=== PATIENT | male | born 1960 | race Hispanic/Latino ===

== ENCOUNTER 2020-02-22 11:54 | Observation (INO) | payer OTHER ==
[~2020-02-22] VITALS: Ht 167.6 cm; Wt 86.7 kg
[2020-02-22 11:45] VITALS: BP 136/65
[2020-02-22 12:25] LABS: BASOPHILS % (AUTO) 0.5 % (0.0-5.0); EOSINOPHILS % (AUTO) 2.7 % (0.0-8.0); LYMPHOCYTES % (AUTO) 17.6 % (21.0-51.0); MEAN CORPUSCULAR HEMOGLOBIN 27.3 pg (27.0-33.0); MEAN CORPUSCULAR HGB CONC 32.7 g/dL (32.0-36.0); MEAN CORPUSCULAR VOLUME 83.5 fL (79-99); MONOCYTES % (AUTO) 6.8 % (3.0-13.0); NEUTROPHILS % (AUTO) 71.9 % (40.0-77.0); PLATELET COUNT (AUTO) 373 K/uL (130-400); RED BLOOD CELL COUNT(AUTO) 3.95 MIL/uL (4.50-6.20); RED CELL DISTRIBUTION WIDTH 12.7 % (11.0-15.5); WHITE BLOOD COUNT (AUTO) 9.1 K/uL (4.8-10.8)
[2020-02-22 12:37] LABS: CARBON DIOXIDE 24 mmol/L (21-32); CHLORIDE 102 mmol/L (101-111); CREATININE 0.9 mg/dL (0.5-1.5); GLOMERULAR FILTR. RATE CALC 91 mL/min (>60); GLUCOSE,RANDOM 331 mg/dL (70-105); POTASSIUM 4.3 mmol/L (3.5-5.1); SODIUM SERUM 139 mmol/L (136-145); UREA NITROGEN, BLOOD 15 mg/dL (7-18)
[2020-02-22 12:48] LABS: ALANINE AMINOTRANSFERASE 23 U/L (12-78); ALBUMIN 3.7 g/dL (3.5-5.0); ASPARTATE AMINOTRANSFERASE 16 U/L (10-37); BILIRUBIN,TOTAL 0.4 mg/dL (0.2-1.0); CREATINE KINASE, TOTAL 140 U/L (21-232); MYOGLOBIN 46 ng/mL (10-92); TOTAL PROTEIN, SERUM 7.8 g/dL (6.0-8.3); TROPONIN I < 0.04 ng/mL (0.00-0.06)
[2020-02-22 13:45] VITALS: BP 136/65
[2020-02-22] MEDS: INSULIN LISPRO 100 UNIT/ML 3ML SQ SCH ×3 (14:41→20:29)
[2020-02-22 15:39] LABS: CHOLESTEROL 228 mg/dL (<200); HDL CHOLESTEROL 141 mg/dL (29-71); LDL DIRECT 114 mg/dL (0-99); TRIGLYCERIDES 398 mg/dL (30-200)
[2020-02-22] MEDS ORDERED: ALPRAZOLAM 0.25 MG TABLET PO PRN (15:45)
[2020-02-22 16:00] VITALS: BP 123/58
[2020-02-22] MEDS: ASPIRIN 325MG EC TAB 325 MG TABLET.DR PO SCH (16:41)
[2020-02-22] MEDS: ENOXAPARIN SODIUM 40 MG/0.4 ML SYRINGE SQ SCH (16:42)
[2020-02-22 19:03] LABS: CREATINE KINASE, TOTAL 114 U/L (21-232); MYOGLOBIN 51 ng/mL (10-92); TROPONIN I < 0.04 ng/mL (0.00-0.06)
[2020-02-22 20:04] VITALS: BP 125/70
[2020-02-22] MEDS: FAMOTIDINE 20MG TAB 20 MG TAB PO SCH (20:26)
[2020-02-22] MEDS: METOPROLOL TARTRATE 25 MG TAB PO SCH (20:27)
[2020-02-22] MEDS ORDERED: ALPRAZOLAM 0.25 MG TABLET PO SCH (21:00)
[2020-02-22 23:54] VITALS: BP 116/62
[2020-02-23] VITALS (14 sets, daily range): BP systolic 115–181; BP diastolic 70–103
[2020-02-23 01:09] LABS: CREATINE KINASE, TOTAL 90 U/L (21-232); MYOGLOBIN 36 ng/mL (10-92); TROPONIN I < 0.04 ng/mL (0.00-0.06)
[2020-02-23 06:36] LABS: MEAN CORPUSCULAR HEMOGLOBIN 27.5 pg (27.0-33.0); MEAN CORPUSCULAR HGB CONC 32.7 g/dL (32.0-36.0); MEAN CORPUSCULAR VOLUME 84.3 fL (79-99); RED BLOOD CELL COUNT(AUTO) 3.56 MIL/uL (4.50-6.20); RED CELL DISTRIBUTION WIDTH 12.5 % (11.0-15.5); WHITE BLOOD COUNT (AUTO) 7.3 K/uL (4.8-10.8)
[2020-02-23 07:06] LABS: CREATININE 0.8 mg/dL (0.5-1.5); POTASSIUM 4.1 mmol/L (3.5-5.1)
[2020-02-23 07:10] LABS: INR 0.89 (0.85-1.15); PARTIAL THROMBOPLASTIN TIME 26.2 SEC (26.3-35.5); PROTHROMBIN TIME 9.7 SEC (9.6-11.6)
[2020-02-23] MEDS ORDERED: EZETIMIBE 10 MG TAB PO SCH (07:30)
[2020-02-23] MEDS ORDERED: METHYLPREDNISOLONE SOD SUCC 125MG/2ML VIAL IVP SCH ×2 (07:30→07:45)
[2020-02-23] MEDS ORDERED: FENOFIBRATE NANOCRYSTALLIZED 145 MG TAB PO SCH (07:30)
[2020-02-23] MEDS ORDERED: DiphenhydrAMINE HCL 50 MG/ML VIAL IV SCH ×2 (07:30→08:00)
[2020-02-23] MEDS ORDERED: PHARMACY COMMUNICATION MISC SCH (07:45)
[2020-02-23] MEDS: METOPROLOL TARTRATE 25 MG TAB PO SCH ×2 (08:24→20:27)
[2020-02-23] MEDS: FAMOTIDINE 20MG TAB 20 MG TAB PO SCH ×2 (08:24→20:27)
[2020-02-23] MEDS: INSULIN LISPRO 100 UNIT/ML 3ML SQ SCH ×4 (08:29→23:36)
[2020-02-23] MEDS: ENOXAPARIN SODIUM 40 MG/0.4 ML SYRINGE SQ SCH (09:00)
[2020-02-23] MEDS: ASPIRIN 325MG EC TAB 325 MG TABLET.DR PO SCH (09:00)
[2020-02-23] MEDS ORDERED: SODIUM CHLORIDE 0.9% 1000ML 1,000 ML IV SCH (10:15)
[2020-02-23] MEDS ORDERED: SODIUM BICARB 50MEQ 50ML VIAL 50 ML ONE (15:17)
[2020-02-23] MEDS ORDERED: HEPARIN SODIUM 1000UNIT/ML 10ML VIAL ONE (15:17)
[2020-02-23] MEDS ORDERED: MEPERIDINE-PF 25 MG/ML SYG ONE ×2 (15:17→16:30)
[2020-02-23] MEDS ORDERED: IOHEXOL-350 50ML VIAL IV ONE (15:17)
[2020-02-23] MEDS ORDERED: IOHEXOL 350 MG/ML 100ML INFUS..BTL IV ONE (15:17)
[2020-02-23] MEDS ORDERED: NITROGLYCERIN 2 MG/VIAL VIAL IV ONE (15:17)
[2020-02-23] MEDS ORDERED: LIDOCAINE HCL 2% 20ML ONE (15:18)
[2020-02-23] MEDS ORDERED: MIDAZOLAM HCL 1 MG/ML 2ML VIAL ONE ×2 (15:18→16:30)
[2020-02-23] MEDS ORDERED: CLOPIDOGREL BISULFATE 300 MG TAB ONE (16:56)
[2020-02-23] MEDS ORDERED: ASPIRIN 325MG EC TAB 325 MG TABLET.DR PO ONE (16:56)
[2020-02-23] MEDS ORDERED: NITROGLYCERIN 50 MG/D5% WATER 1 BOT IV PRN (17:15)
[2020-02-23] MEDS ORDERED: TEMAZEPAM 30 MG CAP PO PRN (17:15)
[2020-02-23] MEDS ORDERED: ONDANSETRON HCL 4 MG/2 ML VIAL IVP PRN (17:15)
[2020-02-23] MEDS: SODIUM CHLORIDE 0.9% 1000ML 1,000 ML IV SCH (18:14)
[2020-02-23] MEDS ORDERED: LORA10TA7 PO (21:50)
[2020-02-23] MEDS ORDERED: ICOS1CAP PO (21:50)
[2020-02-23] MEDS ORDERED: CELE-84 PO (21:50)
[2020-02-23] MEDS ORDERED: ESCI10TA PO (21:54)
[2020-02-23] MEDS ORDERED: INSU100I24 SQ (21:54)
[2020-02-23] MEDS ORDERED: IBUP-2070 PO (21:54)
[2020-02-23] MEDS ORDERED: SITA1TAB6 PO (21:54)
[2020-02-23] MEDS ORDERED: AMLO-258 PO (21:56)
[2020-02-23] MEDS ORDERED: EMPA25TA PO (21:56)
[2020-02-23] MEDS ORDERED: LOSA100T58 PO (21:56)
[2020-02-23] MEDS ORDERED: DONE5TAB33 PO (21:59)
[2020-02-23] MEDS ORDERED: INSU200I SQ (21:59)
[2020-02-24] VITALS: BP 132/69
[2020-02-24] MEDS: SODIUM CHLORIDE 0.9% 1000ML 1,000 ML IV SCH (03:15)
[2020-02-24 04:00] VITALS: BP 123/69
[2020-02-24 05:51] LABS: HEMATOCRIT 30.8 % (42-54); MEAN CORPUSCULAR HEMOGLOBIN 27.4 pg (27.0-33.0); MEAN CORPUSCULAR HGB CONC 33.1 g/dL (32.0-36.0); MEAN CORPUSCULAR VOLUME 82.8 fL (79-99); RED BLOOD CELL COUNT(AUTO) 3.72 MIL/uL (4.50-6.20); RED CELL DISTRIBUTION WIDTH 12.4 % (11.0-15.5); WHITE BLOOD COUNT (AUTO) 15.2 K/uL (4.8-10.8)
[2020-02-24] MEDS: INSULIN LISPRO 100 UNIT/ML 3ML SQ SCH ×3 (07:23→16:24)
[2020-02-24 08:00] VITALS: BP 133/71
[2020-02-24] MEDS ORDERED: ASPIRIN 81MG TAB.CHEW PO SCH (09:00)
[2020-02-24] MEDS ORDERED: CLOPIDOGREL BISULFATE 75 MG TAB PO SCH (09:00)
[2020-02-24] MEDS ORDERED: EZETIMIBE 10 MG TAB PO SCH (09:00)
[2020-02-24] MEDS: FAMOTIDINE 20MG TAB 20 MG TAB PO SCH (09:03)
[2020-02-24] MEDS: METOPROLOL TARTRATE 25 MG TAB PO SCH (09:03)
[2020-02-24 11:00] VITALS: BP 120/63
[2020-02-24 16:00] VITALS: BP 146/78
== END 2020-02-24 17:34 | disposition home or self-care (01) ==
LOC: EDH 11:54 → INTOOBSV 11:55 → 4AH 11:55
PROVIDERS: ADMIT Internal Medicine; ATTEND Internal Medicine
DX: I25.110 Atherosclerotic heart disease of native coronary artery with unstable angina pectoris (principal); I10 Essential (primary) hypertension; E11.9 Type 2 diabetes mellitus without complications; E78.5 Hyperlipidemia, unspecified; R68.84 Jaw pain; E66.9 Obesity, unspecified; E78.00 Pure hypercholesterolemia, unspecified; E78.1 Pure hyperglyceridemia; Z90.49 Acquired absence of other specified parts of digestive tract; Z87.891 Personal history of nicotine dependence; Z82.49 Family history of ischemic heart disease and other diseases of the circulatory system; Z79.899 Other long term (current) drug therapy; Z91.041 Radiographic dye allergy status; Z88.5 Allergy status to narcotic agent; Z88.8 Allergy status to other drugs, medicaments and biological substances; Z68.30 Body mass index [BMI] 30.0-30.9, adult
CPT/HCPCS: 36415 ×3; 71046; 80048 ×2; 80053; 80061 ×2; 82550 ×3; 82948 ×12; 83874 ×3; 84484 ×3; 85025; 85027 ×2; 85347; 85610; 85730; 93005; 93306; 93356; 93458; 96361 ×2; 96372 ×3; 96374; 96375; 96376; 99285; A4510; C1760; C1769; C1874 ×2; C1887; C1894; C9600; G0378 ×50; J1200 ×2; J1644 ×2; J1650; J2175 ×2; J2250 ×2; J2930 ×2; J3490 ×3; Q9965 ×2; Q9967 ×2; 99156; 99157

== ENCOUNTER → 2020-07-17 | Outpatient (CLI) | payer OTHER ==
[~2020-07-17] VITALS: Ht 167.6 cm; Wt 84.4 kg
[~2020-07-17] MED LIST: AMLO-258 PO; CELE-84 PO; DONE5TAB33 PO; EMPA25TA PO; ESCI10TA PO; IBUP-2070 PO; ICOS1CAP PO; INSU100I24 SQ; INSU200I SQ; LORA10TA7 PO; LOSA100T58 PO; REGADENOSON 0.4 MG/5 ML PF SYG IVP SCH; SITA1TAB6 PO
== END | disposition home or self-care (01) ==
LOC: SHCH 08:05
PROVIDERS: ATTEND Internal Medicine Cardiovascular Disease
DX: R07.9 Chest pain, unspecified (principal)
CPT/HCPCS: 78452; 93017; 96374; A9500 ×2

== ENCOUNTER 2020-09-25 05:57 | Day surgery (SDC) | payer OTHER ==
[2020-09-22 11:51] VITALS: BP 141/73
[2020-09-22 12:24] LABS: BASOPHILS % (AUTO) 0.7 % (0.0-5.0); EOSINOPHILS % (AUTO) 2.9 % (0.0-8.0); HEMATOCRIT 37.6 % (42-54); LYMPHOCYTES % (AUTO) 21.4 % (21.0-51.0); MEAN CORPUSCULAR HEMOGLOBIN 27.2 pg (27.0-33.0); MEAN CORPUSCULAR HGB CONC 32.7 g/dL (32.0-36.0); MONOCYTES % (AUTO) 8.3 % (3.0-13.0); NEUTROPHILS % (AUTO) 66.3 % (40.0-77.0); PLATELET COUNT (AUTO) 360 K/uL (130-400); RED BLOOD CELL COUNT(AUTO) 4.53 MIL/uL (4.50-6.20); RED CELL DISTRIBUTION WIDTH 13.2 % (11.0-15.5); WHITE BLOOD COUNT (AUTO) 8.6 K/uL (4.8-10.8)
[2020-09-22 12:26] LABS: APPEARANCE,URINE Clear (CLEAR); BILIRUBIN,URINE Negative (NEGATIVE); COLOR,URINE Yellow (YELLOW); GLUCOSE, URINE (UA) >=1000 mg/dL (NEGATIVE); KETONES,URINE Negative (NEGATIVE); LEUKOCYTE ESTERASE ,URINE Negative (NEGATIVE); NITRATE,URINE Negative (NEGATIVE); OCCULT BLOOD,URINE Negative (NEGATIVE); PH,URINE 5.5 (5.0-8.0); PROTEIN,URINE Trace mg/dL (NEGATIVE); UROBILINOGEN,URINE 0.2 mg/dL (0.2-1.0)
[2020-09-22 12:31] LABS: CREATININE 1.1 mg/dL (0.5-1.5)
[2020-09-22 12:36] LABS: INR 0.95 (0.85-1.15); PROTHROMBIN TIME 10.4 SEC (9.6-11.6)
[2020-09-22 12:38] LABS: PARTIAL THROMBOPLASTIN TIME 27.1 SEC (26.3-35.5)
[2020-09-22 12:49] LABS: BACTERIA,URINE Rare /HPF (None Seen); RBC,URINE 0-1 /HPF (0-1); SQUAMOUS EPITHELIAL CELL,UR Rare /HPF (0-2); WBC,URINE 0-1 /HPF (0-1)
[2020-09-25] VITALS (11 sets, daily range): BP systolic 110–144; BP diastolic 62–75
[~2020-09-25] VITALS: Ht 167.6 cm; Wt 83.6 kg
[~2020-09-25 05:57] MED LIST changes: +ASPI-449 PO; -CELE-84 PO; +CLOP75TA32 PO; -DONE5TAB33 PO; +DONE5TAB5 PO; -ESCI10TA PO; +EZET10TA13 PO; +FENO145T26 PO; -IBUP-2070 PO; -INSU100I24 SQ; -INSU200I SQ; -LORA10TA7 PO; +METO25TA6 PO; -REGADENOSON 0.4 MG/5 ML PF SYG IVP SCH; +ROSU5TAB PO; +trulicity SQ
[2020-09-25] MEDS ORDERED: 0.9% NACL 500ML IV.SOLN 500 ML IV SCH (06:00)
[2020-09-25] MEDS ORDERED: FAMOTIDINE 20MG VIAL IV SCH (06:38)
[2020-09-25] MEDS ORDERED: SOLU-MEDROL 125MG VIAL IM SCH (06:38)
[2020-09-25] MEDS ORDERED: DiphenhydrAMINE HCL 50 MG/ML VIAL IV SCH (06:38)
[2020-09-25] MEDS ORDERED: SODIUM BICARB 50MEQ 50ML VIAL 50 ML ONE (07:16)
[2020-09-25] MEDS ORDERED: IOHEXOL 350 MG/ML 100ML INFUS..BTL IV ONE (07:17)
[2020-09-25] MEDS ORDERED: IOHEXOL-350 50ML VIAL IV ONE (07:17)
[2020-09-25] MEDS ORDERED: NITROGLYCERIN 2 MG VIAL IV ONE (07:17)
[2020-09-25] MEDS ORDERED: MIDAZOLAM HCL 1 MG/ML 2ML VIAL ONE ×2 (07:17→07:48)
[2020-09-25] MEDS ORDERED: HEPARIN 10,000 UNIT/10ML (1,000 UNIT/ML) VIAL ONE (07:17)
[2020-09-25] MEDS ORDERED: NICARDIPINE 25MG INJ IV ONE (07:17)
[2020-09-25] MEDS ORDERED: MEPERIDINE-PF 25 MG/ML SYG ONE ×2 (07:17→07:48)
[2020-09-25] MEDS ORDERED: LIDOCAINE HCL 400MG/20ML VIAL ONE (07:18)
[2020-09-25] MEDS ORDERED: SOLU-MEDROL 125MG VIAL IVP SCH (07:27)
[2020-09-25] MEDS ORDERED: 0.9%NACL 1000ML 1,000 ML IV SCH (09:00)
[2020-09-25] MEDS ORDERED: ONDANSETRON 4MG INJ IVP PRN (09:00)
[2020-09-25] MEDS ORDERED: DEXTROSE 50%-WATER 50 ML DISP.SYRIN IV PRN (09:00)
[2020-09-25] MEDS ORDERED: INSULIN HUMULIN R 100 UNIT/ML 3ML SQ SCH (11:30)
== END 2020-09-25 14:30 | disposition home or self-care (01) ==
LOC: DAH 05:57
PROVIDERS: ATTEND Internal Medicine Cardiovascular Disease
DX: I25.119 Atherosclerotic heart disease of native coronary artery with unspecified angina pectoris (principal); E11.9 Type 2 diabetes mellitus without complications; I10 Essential (primary) hypertension; E78.5 Hyperlipidemia, unspecified; Z88.6 Allergy status to analgesic agent; Z88.3 Allergy status to other anti-infective agents; Z79.82 Long term (current) use of aspirin; Z79.01 Long term (current) use of anticoagulants; Z90.49 Acquired absence of other specified parts of digestive tract; Z79.4 Long term (current) use of insulin
CPT/HCPCS: 36415; 71045; 80048; 81001; 82948 ×3; 85025; 85610; 85730; 93005; 93458; A4215; A4216; A4221; A4222; A4223 ×3; A4606; A4663; C1769 ×2; C1874; C1887; C1894; C9600; J1200 ×2; J1644 ×2; J2175 ×2; J2250 ×2; J2930; J3490 ×5; Q9965; Q9967 ×2; 99156; 99157

== ENCOUNTER 2021-02-23 22:19 | Inpatient (IN) | payer OTHER ==
[~2021-02-23] VITALS: Ht 167.6 cm; Wt 80.3 kg
[2021-02-23 22:43] LABS: BASOPHILS % (AUTO) 0.6 % (0.0-5.0); EOSINOPHILS % (AUTO) 0.5 % (0.0-8.0); HEMATOCRIT 24.5 % (42-54); LYMPHOCYTES % (AUTO) 15.3 % (21.0-51.0); MEAN CORPUSCULAR HEMOGLOBIN 22.6 pg (27.0-33.0); MEAN CORPUSCULAR HGB CONC 29.4 g/dL (32.0-36.0); MONOCYTES % (AUTO) 9.8 % (3.0-13.0); NEUTROPHILS % (AUTO) 73.5 % (40.0-77.0); PLATELET COUNT (AUTO) 441 K/uL (130-400); RED BLOOD CELL COUNT(AUTO) 3.18 MIL/uL (4.50-6.20); RED CELL DISTRIBUTION WIDTH 13.3 % (11.0-15.5)
[2021-02-23 22:54] LABS: INR 0.96 (0.85-1.15); PROTHROMBIN TIME 10.5 SEC (9.6-11.6)
[2021-02-23 22:56] LABS: B-TYPE NATRIURETIC PEPTIDE 16 pg/mL (0-100)
[2021-02-23 22:57] LABS: ALBUMIN 3.6 g/dL (3.5-5.0); CREATININE 1.5 mg/dL (0.5-1.5); POTASSIUM 4.1 mmol/L (3.5-5.1); TOTAL PROTEIN, SERUM 7.4 g/dL (6.0-8.3)
[2021-02-23 23:11] LABS: BILIRUBIN,TOTAL 0.1 mg/dL (0.2-1.0)
[2021-02-23 23:18] LABS: APPEARANCE,URINE Clear (CLEAR); BILIRUBIN,URINE Negative (NEGATIVE); COLOR,URINE Yellow (YELLOW); GLUCOSE, URINE (UA) >=1000 mg/dL (NEGATIVE); KETONES,URINE Negative (NEGATIVE); LEUKOCYTE ESTERASE ,URINE Negative (NEGATIVE); NITRATE,URINE Negative (NEGATIVE); OCCULT BLOOD,URINE Negative (NEGATIVE); PROTEIN,URINE Negative (NEGATIVE); UROBILINOGEN,URINE 0.2 mg/dL (0.2-1.0)
[2021-02-23] MEDS ORDERED: ASPIRIN 325MG TAB PO ONE (23:30)
[2021-02-23] MEDS ORDERED: 0.9%NACL 1000ML 1,000 ML IV ONE (23:30)
[2021-02-23 23:46] LABS: BACTERIA,URINE None Seen /HPF (None Seen); RBC,URINE None Seen /HPF (0-1); SQUAMOUS EPITHELIAL CELL,UR Rare /HPF (0-2); WBC,URINE 0-1 /HPF (0-1); YEAST,URINE BUDDING None Seen /HPF (None Seen)
[2021-02-24] MEDS ORDERED: INSULIN HUMULIN R 100 UNIT/ML 3ML IV ONE (01:00)
[2021-02-24] MEDS ORDERED: LACTULOSE 20 GM/30 ML UDCUP ONE (01:22)
[2021-02-24] MEDS: LACTULOSE 20 GM/30 ML UDCUP PO SCH ×4 (01:56→19:39)
[2021-02-24] MEDS ORDERED: ONDANSETRON 4MG INJ IVP PRN (02:00)
[2021-02-24] MEDS ORDERED: DEXTROSE 50%-WATER 50 ML DISP.SYRIN IV PRN (02:30)
[2021-02-24] MEDS ORDERED: MORPHINE 2 MG SYG IVP PRN (02:30)
[2021-02-24] MEDS ORDERED: GLUCAGON 1MG KIT 1 MG ML IM PRN (02:30)
[2021-02-24 05:10] VITALS: BP 151/88
[2021-02-24 06:19] LABS: HEMATOCRIT 23.9 % (42-54); MEAN CORPUSCULAR HEMOGLOBIN 23.7 pg (27.0-33.0); MEAN CORPUSCULAR VOLUME 76.6 fL (79-99); RED BLOOD CELL COUNT(AUTO) 3.12 MIL/uL (4.50-6.20); RED CELL DISTRIBUTION WIDTH 14.4 % (11.0-15.5); WHITE BLOOD COUNT (AUTO) 7.9 K/uL (4.8-10.8)
[2021-02-24] MEDS: INSULIN R PO SS1 SQ SCH ×4 (06:22→20:33)
[2021-02-24 06:38] LABS: CREATININE 1.1 mg/dL (0.5-1.5); MAGNESIUM 2.3 mg/dL (1.80-2.40); POTASSIUM 3.7 mmol/L (3.5-5.1)
[2021-02-24 06:47] LABS: HEMOGLOBIN A1C 10.3 % (4.0-6.0)
[2021-02-24 06:53] LABS: % IRON SATURATION 6.8 % (30-44)
[2021-02-24 08:00] VITALS: BP 158/64
[2021-02-24] MEDS: ASPIRIN 81 MG EC TAB PO SCH (09:00)
[2021-02-24] MEDS ORDERED: POTASSIUM CHLORIDE 20MEQ/100ML 100 ML IV PRN (10:00)
[2021-02-24] MEDS ORDERED: POTASSIUM CHLORIDE 10% ELIXIR 20 MEQ/15 ML UDCUP PO PRN (10:00)
[2021-02-24] MEDS ORDERED: LIDOCAINE HCL-MPF 1% 2ML VIAL IV PRN (10:00)
[2021-02-24] MEDS: MORPHINE 2 MG SYG IVP PRN ×2 (10:30→19:54)
[2021-02-24] MEDS: KCL 20 MEQ ERTAB PO PRN ×2 (10:31→13:20)
[2021-02-24 12:00] VITALS: BP 152/83
[2021-02-24 16:00] VITALS: BP 141/70
[2021-02-24] MEDS ORDERED: SITA1TAB6 PO (19:11)
[2021-02-24] MEDS ORDERED: ESCI-8 PO (19:11)
[2021-02-24 19:15] VITALS: BP 141/74
[2021-02-24 23:37] VITALS: BP 113/62
[2021-02-25] MEDS ORDERED: LACTULOSE 20 GM/30 ML UDCUP PO PRN (01:30)
[2021-02-25 04:07] VITALS: BP 134/74
[2021-02-25 04:52] LABS: HEMATOCRIT 23.9 % (42-54); MEAN CORPUSCULAR HEMOGLOBIN 23.5 pg (27.0-33.0); MEAN CORPUSCULAR HGB CONC 30.1 g/dL (32.0-36.0); MEAN CORPUSCULAR VOLUME 78.1 fL (79-99); RED BLOOD CELL COUNT(AUTO) 3.06 MIL/uL (4.50-6.20); RED CELL DISTRIBUTION WIDTH 14.2 % (11.0-15.5); WHITE BLOOD COUNT (AUTO) 8.4 K/uL (4.8-10.8)
[2021-02-25 05:05] LABS: POTASSIUM 4.1 mmol/L (3.5-5.1)
[2021-02-25] MEDS: INSULIN R PO SS1 SQ SCH ×4 (06:40→21:56)
[2021-02-25] MEDS: MORPHINE 2 MG SYG IVP PRN (06:41)
[2021-02-25 07:37] VITALS: BP 143/72
[2021-02-25] MEDS: ASPIRIN 81 MG EC TAB PO SCH (08:42)
[2021-02-25 11:21] VITALS: BP 128/67
[2021-02-25 16:00] VITALS: BP 160/74
[2021-02-25 19:32] VITALS: BP 139/68
[2021-02-25] MEDS: ACETAMINOPHEN 325 MG TAB PO PRN (21:58)
[2021-02-25 23:13] VITALS: BP 131/61
[2021-02-26] VITALS (18 sets, daily range): BP systolic 116–178; BP diastolic 64–97
[2021-02-26 00:34] LABS: HEMATOCRIT 26.1 % (42-54)
[2021-02-26] MEDS: INSULIN R PO SS1 SQ SCH ×4 (05:43→20:13)
[2021-02-26] MEDS: MORPHINE 2 MG SYG IVP PRN ×2 (05:50→23:01)
[2021-02-26 06:22] LABS: HEMATOCRIT 27.1 % (42-54)
[2021-02-26] MEDS ORDERED: LIDOCAINE HCL 1% 20 ML VIAL ONE (07:48)
[2021-02-26] MEDS ORDERED: PROPOFOL 10 MG/ML 20ML VIAL IV ONE (07:48)
[2021-02-26] MEDS: ASPIRIN 81 MG EC TAB PO SCH (08:34)
[2021-02-26 12:04] LABS: HEMATOCRIT 28.3 % (42-54)
[2021-02-26] MEDS: METOPROLOL TARTRATE 25 MG TAB PO SCH (20:08)
[2021-02-26] MEDS: PANTOPRAZOLE 40 MG/VIAL IVP SCH (20:08)
[2021-02-27] VITALS: BP 148/74
[2021-02-27 03:42] VITALS: BP 152/78
[2021-02-27] MEDS: ACETAMINOPHEN 325 MG TAB PO PRN (04:23)
[2021-02-27] MEDS: INSULIN R PO SS1 SQ SCH ×4 (06:23→20:40)
[2021-02-27 08:04] VITALS: BP 142/73
[2021-02-27 08:31] LABS: HEMATOCRIT 32.1 % (42-54); MEAN CORPUSCULAR HEMOGLOBIN 24.3 pg (27.0-33.0); MEAN CORPUSCULAR HGB CONC 30.5 g/dL (32.0-36.0); MEAN CORPUSCULAR VOLUME 79.5 fL (79-99); PLATELET COUNT (AUTO) 406 K/uL (130-400); RED BLOOD CELL COUNT(AUTO) 4.04 MIL/uL (4.50-6.20); RED CELL DISTRIBUTION WIDTH 14.6 % (11.0-15.5); WHITE BLOOD COUNT (AUTO) 9.3 K/uL (4.8-10.8)
[2021-02-27 08:46] LABS: CREATININE 1.2 mg/dL (0.5-1.5)
[2021-02-27 09:08] LABS: EOSINOPHILS % (MANUAL) 2 % (1-6); LYMPHOCYTES % (MANUAL) 23 % (22-44); MAN.DIFF COMMENT-IMPRESSION MANUAL DIFFERENTIAL; MONOCYTES % (MANUAL) 5 % (2-9); SEGMENTED NEUTROPHILS % 70 % (40-70)
[2021-02-27 09:09] LABS: PLATELET MORPHOLOGY COMMENT ADEQUATE
[2021-02-27] MEDS: PANTOPRAZOLE 40 MG/VIAL IVP SCH (09:09)
[2021-02-27] MEDS: ASPIRIN 81 MG EC TAB PO SCH (09:09)
[2021-02-27] MEDS: LOSARTAN 100 MG TABLET PO SCH (09:09)
[2021-02-27] MEDS: METOPROLOL TARTRATE 25 MG TAB PO SCH ×2 (09:09→20:26)
[2021-02-27] MEDS: EZETIMIBE 10 MG TAB PO SCH (09:09)
[2021-02-27 11:50] VITALS: BP 128/71
[2021-02-27 16:00] VITALS: BP 130/75
[2021-02-27] MEDS: CLOPIDOGREL 75MG TAB PO SCH (18:38)
[2021-02-27 19:10] VITALS: BP 144/72
[2021-02-27] MEDS: MORPHINE 2 MG SYG IVP PRN (20:27)
[2021-02-28] VITALS (7 sets, daily range): BP systolic 123–154; BP diastolic 63–77
[2021-02-28] MEDS: ACETAMINOPHEN 325 MG TAB PO PRN ×2 (05:08→21:57)
[2021-02-28] MEDS: INSULIN R PO SS1 SQ SCH ×4 (06:22→20:25)
[2021-02-28] MEDS: EZETIMIBE 10 MG TAB PO SCH (10:27)
[2021-02-28] MEDS: CLOPIDOGREL 75MG TAB PO SCH (10:27)
[2021-02-28] MEDS: METOPROLOL TARTRATE 25 MG TAB PO SCH ×2 (10:27→20:19)
[2021-02-28] MEDS: PANTOPRAZOLE 40 MG/VIAL IVP SCH (10:27)
[2021-02-28] MEDS: LOSARTAN 100 MG TABLET PO SCH (10:27)
[2021-02-28] MEDS: ASPIRIN 81 MG EC TAB PO SCH (10:27)
[2021-02-28] MEDS: MORPHINE 2 MG SYG IVP PRN ×2 (10:39→16:58)
[2021-02-28] MEDS ORDERED: GADOTERATE MEGLUMINE 10 MMOL/20 ML VIAL IV ONE (14:30)
[2021-03-01 03:29] VITALS: BP 112/61
[2021-03-01] MEDS: INSULIN R PO SS1 SQ SCH ×3 (06:19→16:22)
[2021-03-01] MEDS: ACETAMINOPHEN 325 MG TAB PO PRN (06:51)
[2021-03-01 08:00] VITALS: BP 143/79
[2021-03-01] MEDS: LOSARTAN 100 MG TABLET PO SCH (09:23)
[2021-03-01] MEDS: PANTOPRAZOLE 40 MG/VIAL IVP SCH (09:23)
[2021-03-01] MEDS: METOPROLOL TARTRATE 25 MG TAB PO SCH (09:24)
[2021-03-01] MEDS: EZETIMIBE 10 MG TAB PO SCH (09:24)
[2021-03-01] MEDS: CLOPIDOGREL 75MG TAB PO SCH (09:24)
[2021-03-01] MEDS: ASPIRIN 81 MG EC TAB PO SCH (09:24)
[2021-03-01 12:00] VITALS: BP 147/76
[2021-03-01 16:00] VITALS: BP 145/81
== END 2021-03-01 17:53 | disposition home or self-care (01) | DRG 378 ==
LOC: EDH 22:19 → EDHIP 02-24 01:08 → 4CH 02-24 04:19
PROVIDERS: ADMIT Internal Medicine Infectious Disease; ATTEND Internal Medicine Infectious Disease
PROC: 30233N1 Transfusion of Nonautologous Red Blood Cells into Peripheral Vein, Percutaneous Approach (ICD-10-PCS; 2021-02-24)
PROC: 0DB98ZX Excision of Duodenum, Via Natural or Artificial Opening Endoscopic, Diagnostic (ICD-10-PCS; principal; 2021-02-26)
PROC: 0DB68ZX Excision of Stomach, Via Natural or Artificial Opening Endoscopic, Diagnostic (ICD-10-PCS; 2021-02-26)
DX: K29.71 Gastritis, unspecified, with bleeding (principal); D62 Acute posthemorrhagic anemia; I24.8 Other forms of acute ischemic heart disease; E72.51 Non-ketotic hyperglycinemia; K29.81 Duodenitis with bleeding; I10 Essential (primary) hypertension; E78.5 Hyperlipidemia, unspecified; R41.3 Other amnesia; K59.00 Constipation, unspecified; D50.9 Iron deficiency anemia, unspecified; K20.90 Esophagitis, unspecified without bleeding; E66.9 Obesity, unspecified; E11.65 Type 2 diabetes mellitus with hyperglycemia; Z68.28 Body mass index [BMI] 28.0-28.9, adult; Z79.82 Long term (current) use of aspirin; Z79.02 Long term (current) use of antithrombotics/antiplatelets; Z79.899 Other long term (current) drug therapy; Z88.8 Allergy status to other drugs, medicaments and biological substances; Z88.5 Allergy status to narcotic agent; Z91.041 Radiographic dye allergy status; Z87.891 Personal history of nicotine dependence; Z95.5 Presence of coronary angioplasty implant and graft; Z83.3 Family history of diabetes mellitus; I25.10 Atherosclerotic heart disease of native coronary artery without angina pectoris
CPT/HCPCS: 36415; 36430; 43239; 70553; 71045; 80048; 80053; 81001; 82010; 82270; 82550; 82607; 82728; 82948; 83036; 83540; 83550; 83605; 83690; 83735; 83874; 83880; 84484; 85014; 85018; 85025; 85027; 85610; 86850; 86900; 86901; 86923; 93005; A4606; C9113; G0378; J1815; J2704; J7030; P9016

== ENCOUNTER 2021-03-28 07:54 | Day surgery (SDC) | payer OTHER ==
[2021-03-28] VITALS (13 sets, daily range): BP systolic 123–151; BP diastolic 56–72
[~2021-03-28 07:54] MED LIST changes: +ESCI-8 PO
[2021-03-28] MEDS ORDERED: 0.9%NACL 1000ML 1,000 ML IV ONE (08:23)
[2021-03-28 08:34] LABS: HEMATOCRIT 21.3 % (42-54)
== END 2021-03-28 14:35 | disposition home or self-care (01) ==
LOC: DAH 07:54
PROVIDERS: ATTEND Internal Medicine
DX: D50.0 Iron deficiency anemia secondary to blood loss (chronic) (principal); Z87.891 Personal history of nicotine dependence; Z88.8 Allergy status to other drugs, medicaments and biological substances
CPT/HCPCS: 36415; 36430; 85014; 85018; 86850; 86900; 86901; 86923; A4215; A4216; A4221; A4222; A4223 ×3; A4606; A4663; J7030; P9016

== ENCOUNTER 2021-05-30 15:22 | Emergency (ER) | payer OTHER ==
[~2021-05-30] VITALS: Ht 167.6 cm; Wt 85.3 kg
[2021-05-30 15:47] LABS: EOSINOPHILS % (AUTO) 2.3 % (0.0-8.0); HEMATOCRIT 22.4 % (42-54); LYMPHOCYTES % (AUTO) 13.7 % (21.0-51.0); MEAN CORPUSCULAR HEMOGLOBIN 27.2 pg (27.0-33.0); MEAN CORPUSCULAR HGB CONC 31.3 g/dL (32.0-36.0); MEAN CORPUSCULAR VOLUME 87.2 fL (79-99); MONOCYTES % (AUTO) 7.5 % (3.0-13.0); NEUTROPHILS % (AUTO) 75.1 % (40.0-77.0); PLATELET COUNT (AUTO) 301 K/uL (130-400); RED BLOOD CELL COUNT(AUTO) 2.57 MIL/uL (4.50-6.20); RED CELL DISTRIBUTION WIDTH 20.2 % (11.0-15.5); WHITE BLOOD COUNT (AUTO) 6.9 K/uL (4.8-10.8)
[2021-05-30 15:58] LABS: CREATININE 1.4 mg/dL (0.5-1.5); POTASSIUM 4.8 mmol/L (3.5-5.1)
[2021-05-30 16:03] LABS: ALBUMIN 3.5 g/dL (3.5-5.0)
[2021-05-30 16:36] LABS: BILIRUBIN,TOTAL 0.1 mg/dL (0.2-1.0)
[2021-05-31 04:40] VITALS: BP 110/55
== END 2021-05-31 06:39 | disposition home or self-care (01) ==
LOC: EDH 15:22
DX: D64.89 Other specified anemias (principal); E11.65 Type 2 diabetes mellitus with hyperglycemia; I11.0 Hypertensive heart disease with heart failure; I25.10 Atherosclerotic heart disease of native coronary artery without angina pectoris; E78.00 Pure hypercholesterolemia, unspecified; Z95.0 Presence of cardiac pacemaker; Z88.5 Allergy status to narcotic agent; Z88.8 Allergy status to other drugs, medicaments and biological substances; Z91.041 Radiographic dye allergy status; Z79.82 Long term (current) use of aspirin; Z79.899 Other long term (current) drug therapy
CPT/HCPCS: 36415; 36430; 71045; 80053; 82948; 84484; 85025; 86850; 86900; 86901; 86923; 93005; 99291; P9016 ×2

== ENCOUNTER → 2021-06-14 | Outpatient (CLI) | payer OTHER | END | disposition home or self-care (01) | LOC: SHCH 07:38 | PROVIDERS: ATTEND Internal Medicine Cardiovascular Disease | DX: R09.89 Other specified symptoms and signs involving the circulatory and respiratory systems (principal) | CPT/HCPCS: 93880 ==

== ENCOUNTER 2021-06-20 12:05 | Observation (INO) | payer OTHER ==
[~2021-06-20] VITALS: Ht 167.6 cm; Wt 77.1 kg
[2021-06-20 13:30] VITALS: BP 156/96
[2021-06-20 15:50] VITALS: BP 141/67
[2021-06-20] MEDS: INSULIN HUMULIN R 100 UNIT/ML 3ML SQ SCH ×2 (16:02→22:10)
[2021-06-20 20:34] VITALS: BP 135/69
[2021-06-20 23:24] VITALS: BP 139/80
[2021-06-21 04:00] VITALS: BP 136/65
[2021-06-21 06:02] LABS: HEMATOCRIT 24.2 % (42-54)
[2021-06-21] MEDS: INSULIN HUMULIN R 100 UNIT/ML 3ML SQ SCH (06:24)
[2021-06-21 07:35] VITALS: BP 124/68
[2021-06-21] MEDS ORDERED: PANTOPRAZOLE 40 MG/VIAL IVP SCH (09:00)
== END 2021-06-21 11:45 | disposition home or self-care (01) ==
LOC: EDH 12:05 → EDHIP 12:06 → 3DH 13:30
PROVIDERS: ADMIT Internal Medicine Hematology & Oncology; ATTEND Internal Medicine Hematology & Oncology
DX: K92.2 Gastrointestinal hemorrhage, unspecified (principal); D50.0 Iron deficiency anemia secondary to blood loss (chronic); I25.10 Atherosclerotic heart disease of native coronary artery without angina pectoris; R07.89 Other chest pain; E11.9 Type 2 diabetes mellitus without complications; I10 Essential (primary) hypertension; E78.5 Hyperlipidemia, unspecified; Z63.4 Disappearance and death of family member; Z95.5 Presence of coronary angioplasty implant and graft; Z87.891 Personal history of nicotine dependence; Z79.899 Other long term (current) drug therapy
CPT/HCPCS: 36415 ×2; 36430; 82948 ×3; 85014; 85018; 86850; 86900; 86901; 86923 ×2; 96372 ×2; 96374; C9113; G0378 ×17; J1815 ×2; P9016 ×2

== ENCOUNTER 2021-10-09 09:06 | Emergency (ER) | payer OTHER ==
[~2021-10-09] VITALS: Ht 167.6 cm; Wt 83.0 kg
[~2021-10-09 09:06] MED LIST changes: +ACET-2743 PO; -ASPI-449 PO; -CLOP75TA32 PO; -DONE5TAB5 PO; -EMPA25TA PO; -EZET10TA13 PO; +EZET10TA48 PO; -ICOS1CAP PO; +INSU100I24 SQ; -LOSA100T58 PO; +METO50TA18 PO; -trulicity SQ
[2021-10-09 09:32] LABS: BASOPHILS % (AUTO) 0.8 % (0.0-5.0); EOSINOPHILS % (AUTO) 2.3 % (0.0-8.0); HEMATOCRIT 21.4 % (42-54); LYMPHOCYTES % (AUTO) 12.3 % (21.0-51.0); MEAN CORPUSCULAR HEMOGLOBIN 23.5 pg (27.0-33.0); MEAN CORPUSCULAR HGB CONC 30.4 g/dL (32.0-36.0); MEAN CORPUSCULAR VOLUME 77.3 fL (79-99); MONOCYTES % (AUTO) 9.8 % (3.0-13.0); NEUTROPHILS % (AUTO) 74.3 % (40.0-77.0); NUCLEATED RED BLOOD CELLS 0.4 % (0.0-0.19); PLATELET COUNT (AUTO) 359 K/uL (130-400); RED BLOOD CELL COUNT(AUTO) 2.77 MIL/uL (4.50-6.20); RED CELL DISTRIBUTION WIDTH 14.6 % (11.0-15.5); WHITE BLOOD COUNT (AUTO) 7.7 K/uL (4.8-10.8)
[2021-10-09 09:57] LABS: ALBUMIN 3.4 g/dL (3.5-5.0); CREATININE 1.4 mg/dL (0.5-1.5); MAGNESIUM 2.1 mg/dL (1.80-2.40); POTASSIUM 4.2 mmol/L (3.5-5.1)
[2021-10-09 17:07] LABS: HEMATOCRIT 21.9 % (42-54)
[2021-10-10 01:52] LABS: HEMATOCRIT 23.6 % (42-54)
[2021-10-10 02:32] VITALS: BP 124/75
== END 2021-10-10 02:57 | disposition home or self-care (01) ==
LOC: EDH 09:06
DX: D64.9 Anemia, unspecified (principal); I25.10 Atherosclerotic heart disease of native coronary artery without angina pectoris; I11.9 Hypertensive heart disease without heart failure; E11.9 Type 2 diabetes mellitus without complications; Z88.5 Allergy status to narcotic agent; Z88.8 Allergy status to other drugs, medicaments and biological substances; Z79.84 Long term (current) use of oral hypoglycemic drugs; Z79.899 Other long term (current) drug therapy; Z90.49 Acquired absence of other specified parts of digestive tract; Z95.5 Presence of coronary angioplasty implant and graft
CPT/HCPCS: 99285; 36430; 83735; 84484; 80053; 83880; 85025; 86850; 86900; 86901; 86923 ×2; 36415 ×2; 93005; 85018 ×3; 85014 ×3; P9016 ×2

== ENCOUNTER 2021-11-14 22:16 | Observation (INO) | payer OTHER ==
[~2021-11-14] VITALS: Ht 167.6 cm; Wt 87.3 kg
[2021-11-14 22:33] LABS: BASOPHILS % (AUTO) 0.7 % (0.0-5.0); EOSINOPHILS % (AUTO) 1.9 % (0.0-8.0); HEMATOCRIT 23.9 % (42-54); LYMPHOCYTES % (AUTO) 10.1 % (21.0-51.0); MEAN CORPUSCULAR HEMOGLOBIN 24.6 pg (27.0-33.0); MEAN CORPUSCULAR HGB CONC 29.3 g/dL (32.0-36.0); MEAN CORPUSCULAR VOLUME 83.9 fL (79-99); NEUTROPHILS % (AUTO) 76.8 % (40.0-77.0); NUCLEATED RED BLOOD CELLS 0.4 % (0.0-0.19); PLATELET COUNT (AUTO) 341 K/uL (130-400); RED BLOOD CELL COUNT(AUTO) 2.85 MIL/uL (4.50-6.20); RED CELL DISTRIBUTION WIDTH 20.3 % (11.0-15.5); WHITE BLOOD COUNT (AUTO) 7.3 K/uL (4.8-10.8)
[2021-11-14 22:47] LABS: INR 0.93 (0.85-1.15); PROTHROMBIN TIME 9.7 SEC (9.6-11.6)
[2021-11-14 22:51] LABS: CREATININE 1.9 mg/dL (0.5-1.5); POTASSIUM 4.3 mmol/L (3.5-5.1)
[2021-11-14 23:01] LABS: ALBUMIN 3.7 g/dL (3.5-5.0); TOTAL PROTEIN, SERUM 7.3 g/dL (6.0-8.3)
[2021-11-14 23:08] LABS: APPEARANCE,URINE CLEAR (CLEAR); BILIRUBIN,URINE NEGATIVE (NEGATIVE); COLOR,URINE YELLOW (YELLOW); GLUCOSE, URINE (UA) >=1000 mg/dL (NEGATIVE); KETONES,URINE NEGATIVE (NEGATIVE); LEUKOCYTE ESTERASE ,URINE NEGATIVE (NEGATIVE); NITRATE,URINE NEGATIVE (NEGATIVE); OCCULT BLOOD,URINE NEGATIVE (NEGATIVE); PROTEIN,URINE NEGATIVE (NEGATIVE); UROBILINOGEN,URINE 0.2 mg/dL (0.2-1.0)
[2021-11-14 23:22] LABS: BACTERIA,URINE None Seen /HPF (None Seen); RBC,URINE 0-1 /HPF (0-1); WBC,URINE None Seen /HPF (0-1)
[2021-11-14 23:23] LABS: SQUAMOUS EPITHELIAL CELL,UR Rare /HPF (0-2)
[2021-11-15] MEDS: 0.9%NACL 1000ML 1,000 ML IV SCH ×2 (01:04→10:11)
[2021-11-15 01:14] VITALS: BP 153/74
[2021-11-15] MEDS: PANTOPRAZOLE 40 MG/VIAL IVP SCH ×2 (01:18→08:55)
[2021-11-15 04:07] VITALS: BP 125/62
[2021-11-15 07:30] VITALS: BP 102/51
[2021-11-15 09:01] LABS: HEMATOCRIT 27.3 % (42-54); MEAN CORPUSCULAR HEMOGLOBIN 26.4 pg (27.0-33.0); MEAN CORPUSCULAR HGB CONC 31.1 g/dL (32.0-36.0); MEAN CORPUSCULAR VOLUME 84.8 fL (79-99); NUCLEATED RED BLOOD CELLS 0.3 % (0.0-0.19); RED BLOOD CELL COUNT(AUTO) 3.22 MIL/uL (4.50-6.20); RED CELL DISTRIBUTION WIDTH 18.2 % (11.0-15.5)
[2021-11-15 11:00] VITALS: BP 128/68
[2021-11-15 12:48] LABS: CREATININE 1.5 mg/dL (0.5-1.5); POTASSIUM 4.5 mmol/L (3.5-5.1)
[2021-11-15 13:08] LABS: INR 0.96 (0.85-1.15); PROTHROMBIN TIME 10.5 SEC (9.6-11.6)
[2021-11-15 13:09] LABS: PARTIAL THROMBOPLASTIN TIME 28.9 SEC (26.3-35.5)
[2021-11-15] MEDS ORDERED: INSULIN HUMULIN R 100 UNIT/ML 3ML SQ SCH (16:30)
== END 2021-11-15 15:35 | disposition home or self-care (01) ==
LOC: EDH 22:16 → EDHIP 23:34 → INTOOBSV 23:34 → OBSVTOIN 23:34 → 4DH 11-15 00:35
PROVIDERS: ADMIT Internal Medicine Hematology & Oncology; ATTEND Internal Medicine Hematology & Oncology
DX: K92.2 Gastrointestinal hemorrhage, unspecified (principal); D64.9 Anemia, unspecified; C85.90 Non-Hodgkin lymphoma, unspecified, unspecified site; I20.8 Other forms of angina pectoris; I10 Essential (primary) hypertension; E86.0 Dehydration; E11.9 Type 2 diabetes mellitus without complications; E78.00 Pure hypercholesterolemia, unspecified; Z95.5 Presence of coronary angioplasty implant and graft; Z79.4 Long term (current) use of insulin; Z90.49 Acquired absence of other specified parts of digestive tract; Z95.1 Presence of aortocoronary bypass graft
CPT/HCPCS: 99285; 84484; 80053; 85025; 85610 ×2; 86850; 86900; 86901; 86923 ×2; 81001; 36415 ×2; 71045; 93005; 96374; 96376; 36430; 96361; 80048; 85027; 85730; 82948 ×2; G0378 ×2; P9016 ×3; C9113 ×2

== ENCOUNTER 2022-08-06 17:23 | Emergency (ER) | payer OTHER ==
[~2022-08-06] VITALS: Ht 167.6 cm; Wt 81.6 kg
[~2022-08-06 17:23] MED LIST changes: -ACET-2743 PO; +HYDR-4060 PO; +LOSA100T59 PO; -METO25TA6 PO; +ONDA-105 PO
[2022-08-06 18:33] LABS: BASOPHILS % (AUTO) 0.5 % (0.0-5.0); EOSINOPHILS % (AUTO) 1.2 % (0.0-8.0); MEAN CORPUSCULAR HEMOGLOBIN 29.6 pg (27.0-33.0); MEAN CORPUSCULAR HGB CONC 32.9 g/dL (32.0-36.0); MEAN CORPUSCULAR VOLUME 89.9 fL (79-99); MONOCYTES % (AUTO) 12.5 % (3.0-13.0); NEUTROPHILS % (AUTO) 77.8 % (40.0-77.0); PLATELET COUNT (AUTO) 244 K/uL (130-400); RED BLOOD CELL COUNT(AUTO) 3.78 MIL/uL (4.50-6.20); RED CELL DISTRIBUTION WIDTH 14.7 % (11.0-15.5); WHITE BLOOD COUNT (AUTO) 5.8 K/uL (4.8-10.8)
[2022-08-06 18:34] LABS: APPEARANCE,URINE CLEAR (CLEAR); BILIRUBIN,URINE NEGATIVE (NEGATIVE); COLOR,URINE LIGHT-YELLOW (YELLOW); GLUCOSE, URINE (UA) 500 mg/dL (NEGATIVE); KETONES,URINE NEGATIVE (NEGATIVE); LEUKOCYTE ESTERASE ,URINE NEGATIVE Leu/uL (NEGATIVE); NITRATE,URINE NEGATIVE (NEGATIVE); OCCULT BLOOD,URINE NEGATIVE (NEGATIVE); PROTEIN,URINE 200 mg/dL (NEGATIVE); UROBILINOGEN,URINE 0.2 mg/dL (0.2-1.0)
[2022-08-06 18:56] LABS: CREATININE 1.8 mg/dL (0.5-1.5); POTASSIUM 5.1 mmol/L (3.5-5.1)
[2022-08-06 19:02] LABS: BACTERIA,URINE FEW /HPF (None Seen); MUCUS,URINE FEW LPF (None Seen); SQUAMOUS EPITHELIAL CELL,UR FEW /HPF (0-2)
[2022-08-06] MEDS ORDERED: 0.9%NACL 1000ML 1,000 ML IV ONE (20:00)
[2022-08-06] MEDS ORDERED: LIDOCAINE 5% TOPICAL PATCH TP ONE ×2 (20:24→20:30)
[2022-08-06 20:58] VITALS: BP 134/78
== END 2022-08-06 20:59 | disposition home or self-care (01) ==
LOC: EDH 17:23
DX: I10 Essential (primary) hypertension (principal); Z90.49 Acquired absence of other specified parts of digestive tract; Z79.899 Other long term (current) drug therapy; Z98.890 Other specified postprocedural states; Z90.5 Acquired absence of kidney; Z85.528 Personal history of other malignant neoplasm of kidney; Z88.5 Allergy status to narcotic agent; Z88.8 Allergy status to other drugs, medicaments and biological substances; Z91.040 Latex allergy status
CPT/HCPCS: 99284; 96360; 80053; 85025; 81001; 36415; 93005; J7030

== ENCOUNTER → 2022-11-04 | Outpatient (CLI) | payer OTHER ==
[2022-11-04 15:00] LABS: BASOPHILS # (AUTO) 0.05 K/uL (0.00-0.20); BASOPHILS % (AUTO) 0.9 % (0.0-5.0); EOSINOPHILS # (AUTO) 0.19 K/uL (0.00-0.70); EOSINOPHILS % (AUTO) 3.5 % (0.0-8.0); HEMATOCRIT 34.1 % (42-54); IMMATURE GRANULOCYTE ABSOLUTE 0.02 K/uL (0-1); LYMPHOCYTES # (AUTO) 0.6 K/uL (1.0-4.8); LYMPHOCYTES % (AUTO) 11.6 % (21.0-51.0); MEAN CORPUSCULAR HEMOGLOBIN 31.5 pg (27.0-33.0); MEAN CORPUSCULAR HGB CONC 34.9 g/dL (32.0-36.0); MEAN CORPUSCULAR VOLUME 90.2 fL (79-99); MONOCYTES # (AUTO) 0.7 K/uL (0.1-1.0); MONOCYTES % (AUTO) 13.3 % (3.0-13.0); NEUTROPHILS # (AUTO) 3.9 K/uL (1.8-7.7); NEUTROPHILS % (AUTO) 70.3 % (40.0-77.0); PLATELET COUNT (AUTO) 299 K/uL (130-400); RED BLOOD CELL COUNT(AUTO) 3.78 MIL/uL (4.50-6.20); RED CELL DISTRIBUTION WIDTH 13.2 % (11.0-15.5); WHITE BLOOD COUNT (AUTO) 5.5 K/uL (4.8-10.8)
[2022-11-04 15:15] LABS: CREATININE 2.7 mg/dL (0.5-1.5)
[2022-11-04 15:20] LABS: POTASSIUM 6.7 mmol/L (3.5-5.1)
== END | disposition home or self-care (01) ==
LOC: LAB 14:19
PROVIDERS: ATTEND Urology
DX: C64.2 Malignant neoplasm of left kidney, except renal pelvis (principal)
CPT/HCPCS: 36415; 80048; 85025

== ENCOUNTER → 2022-11-12 | Outpatient (CLI) | payer OTHER ==
[~2022-11-12] MED LIST changes: +AEC81 PO; -HYDR-4060 PO; -ONDA-105 PO
== END | disposition home or self-care (01) ==
LOC: RAH 11:16
PROVIDERS: ATTEND Urology
DX: C64.2 Malignant neoplasm of left kidney, except renal pelvis (principal); K57.90 Diverticulosis of intestine, part unspecified, without perforation or abscess without bleeding; I70.0 Atherosclerosis of aorta; N28.1 Cyst of kidney, acquired; M47.815 Spondylosis without myelopathy or radiculopathy, thoracolumbar region
CPT/HCPCS: 74176

== ENCOUNTER → 2022-12-13 | Outpatient (CLI) | payer OTHER | END | disposition home or self-care (01) | LOC: RAH 08:38 | PROVIDERS: ATTEND Urology | DX: C64.2 Malignant neoplasm of left kidney, except renal pelvis (principal); N28.1 Cyst of kidney, acquired; R16.0 Hepatomegaly, not elsewhere classified; Z90.5 Acquired absence of kidney | CPT/HCPCS: 74181 ==

== ENCOUNTER 2023-01-14 12:00 | Emergency (ER) | payer OTHER ==
[~2023-01-14] VITALS: Ht 167.6 cm; Wt 83.5 kg
[2023-01-14 13:24] LABS: BASOPHILS # (AUTO) 0.03 K/uL (0.00-0.20); BASOPHILS % (AUTO) 0.5 % (0.0-5.0); EOSINOPHILS # (AUTO) 0.18 K/uL (0.00-0.70); HEMATOCRIT 30.9 % (42-54); IMMATURE GRANULOCYTE ABSOLUTE 0.02 K/uL (0-1); LYMPHOCYTES # (AUTO) 0.4 K/uL (1.0-4.8); LYMPHOCYTES % (AUTO) 7.1 % (21.0-51.0); MEAN CORPUSCULAR HEMOGLOBIN 30.5 pg (27.0-33.0); MEAN CORPUSCULAR VOLUME 87.3 fL (79-99); MONOCYTES # (AUTO) 0.8 K/uL (0.1-1.0); NEUTROPHILS # (AUTO) 4.6 K/uL (1.8-7.7); NEUTROPHILS % (AUTO) 76.1 % (40.0-77.0); PLATELET COUNT (AUTO) 275 K/uL (130-400); RED BLOOD CELL COUNT(AUTO) 3.54 MIL/uL (4.50-6.20); RED CELL DISTRIBUTION WIDTH 12.2 % (11.0-15.5); WHITE BLOOD COUNT (AUTO) 6.1 K/uL (4.8-10.8)
[2023-01-14 13:32] LABS: CREATININE 2.3 mg/dL (0.5-1.5); POTASSIUM 5.3 mmol/L (3.5-5.1)
[2023-01-14 13:37] LABS: ALBUMIN 3.1 g/dL (3.5-5.0); BILIRUBIN,TOTAL 0.3 mg/dL (0.2-1.0); TOTAL PROTEIN, SERUM 6.9 g/dL (6.0-8.3)
[2023-01-14 13:42] LABS: ADD UA MICROSCOPIC YES; APPEARANCE,URINE CLEAR (CLEAR); BILIRUBIN,URINE NEGATIVE (NEGATIVE); COLOR,URINE LIGHT-YELLOW (YELLOW); GLUCOSE, URINE (UA) >=1000 mg/dL (NEGATIVE); KETONES,URINE NEGATIVE (NEGATIVE); LEUKOCYTE ESTERASE ,URINE NEGATIVE Leu/uL (NEGATIVE); NITRATE,URINE NEGATIVE (NEGATIVE); PH,URINE 5.5 (5.0-8.0); PROTEIN,URINE 100 mg/dL (NEGATIVE); UROBILINOGEN,URINE 0.2 mg/dL (0.2-1.0)
[2023-01-14 13:44] LABS: MUCUS,URINE RARE LPF (None Seen); SQUAMOUS EPITHELIAL CELL,UR RARE /HPF (0-2)
[2023-01-14 16:54] VITALS: BP 140/71; PULSE 70; RESP 20; O2SAT 100
== END 2023-01-14 16:56 | disposition home or self-care (01) ==
LOC: EDH 12:00
DX: R19.7 Diarrhea, unspecified (principal); K62.5 Hemorrhage of anus and rectum; Z79.82 Long term (current) use of aspirin; Z79.84 Long term (current) use of oral hypoglycemic drugs; Z79.899 Other long term (current) drug therapy; Z85.528 Personal history of other malignant neoplasm of kidney; Z88.5 Allergy status to narcotic agent; Z88.8 Allergy status to other drugs, medicaments and biological substances; Z90.49 Acquired absence of other specified parts of digestive tract; Z90.5 Acquired absence of kidney
CPT/HCPCS: 36415; 80053; 81001; 82270; 85025; 86850; 86900; 86901; 87046; 87177; 87324; 87493

== ENCOUNTER 2023-10-01 15:32 | Observation (INO) | payer OTHER ==
[~2023-10-01] VITALS: Ht 167.6 cm; Wt 78.2 kg
[2023-10-01] MEDS ORDERED: DEXTROSE 50%-WATER 50 ML DISP.SYRIN IV PRN (16:30)
[2023-10-01] MEDS ORDERED: GLUCAGON 1MG KIT 1 MG ML IM PRN (16:30)
[2023-10-01 16:35] LABS: BASOPHILS # (AUTO) 0.07 K/uL (0.00-0.20); BASOPHILS % (AUTO) 0.8 % (0.0-5.0); EOSINOPHILS # (AUTO) 0.19 K/uL (0.00-0.70); EOSINOPHILS % (AUTO) 2.2 % (0.0-8.0); IMMATURE GRANULOCYTE ABSOLUTE 0.04 K/uL (0-1); LYMPHOCYTES # (AUTO) 0.7 K/uL (1.0-4.8); LYMPHOCYTES % (AUTO) 7.8 % (21.0-51.0); MEAN CORPUSCULAR HEMOGLOBIN 30.4 pg (27.0-33.0); MEAN CORPUSCULAR HGB CONC 35.6 g/dL (32.0-36.0); MEAN CORPUSCULAR VOLUME 85.3 fL (79-99); MONOCYTES # (AUTO) 0.6 K/uL (0.1-1.0); MONOCYTES % (AUTO) 6.7 % (3.0-13.0); NEUTROPHILS # (AUTO) 7.2 K/uL (1.8-7.7); PLATELET COUNT (AUTO) 289 K/uL (130-400); RED BLOOD CELL COUNT(AUTO) 4.57 MIL/uL (4.50-6.20); RED CELL DISTRIBUTION WIDTH 12.3 % (11.0-15.5); WHITE BLOOD COUNT (AUTO) 8.8 K/uL (4.8-10.8)
[2023-10-01 16:59] LABS: ALBUMIN 3.5 g/dL (3.5-5.0); BILIRUBIN,TOTAL 0.3 mg/dL (0.2-1.0); CREATININE 2.7 mg/dL (0.5-1.3); POTASSIUM 4.9 mmol/L (3.5-5.1); TOTAL PROTEIN, SERUM 7.7 g/dL (6.0-8.3)
[2023-10-01] MEDS: INSULIN HUMULIN R 100 UNIT/ML 3ML IV ONE (17:55)
[2023-10-01] MEDS: INSULIN HUMULIN R 100 UNIT/ML 3ML SQ SCH (18:25)
[2023-10-01] MEDS: 0.9%NACL 1000ML 1,000 ML IV SCH (20:36)
[2023-10-01 21:00] VITALS: BP 170/89; PULSE 77; RESP 17; O2SAT 98
[2023-10-01] MEDS ORDERED: ONDANSETRON 4MG INJ IVP PRN (21:30)
[2023-10-01] MEDS ORDERED: ACETAMINOPHEN 325 MG TAB PO PRN (21:30)
[2023-10-01] MEDS ORDERED: LABETALOL 20MG SYG IV PRN (21:30)
[2023-10-01 22:00] VITALS: BP 163/85
[2023-10-01] MEDS: HEPARIN 5,000 UNIT VIAL SQ SCH (22:22)
[2023-10-01] MEDS: HYDRALAZINE 20MG/ML VIAL IV PRN (22:42)
[2023-10-01] MEDS: ACETAMINOPHEN 325 MG TAB PO PRN (22:43)
[2023-10-02 04:00] VITALS: BP 139/71; PULSE 69; RESP 17
[2023-10-02 08:00] VITALS: BP 122/63; PULSE 68; RESP 16; O2SAT 98
[2023-10-02 12:00] VITALS: BP 141/70; PULSE 66; RESP 16
== END 2023-10-02 14:50 | disposition home or self-care (01) ==
LOC: EDH 15:32 → DAHIP 16:01 → 3BH 20:54
PROVIDERS: ADMIT Internal Medicine Hematology & Oncology; ATTEND Internal Medicine Hematology & Oncology
DX: E87.0 Hyperosmolality and hypernatremia (principal); E87.1 Hypo-osmolality and hyponatremia; I12.9 Hypertensive chronic kidney disease with stage 1 through stage 4 chronic kidney disease, or unspecified chronic kidney disease; E11.22 Type 2 diabetes mellitus with diabetic chronic kidney disease; N18.9 Chronic kidney disease, unspecified; E11.65 Type 2 diabetes mellitus with hyperglycemia; C64.9 Malignant neoplasm of unspecified kidney, except renal pelvis; E78.5 Hyperlipidemia, unspecified; I25.10 Atherosclerotic heart disease of native coronary artery without angina pectoris; Z85.72 Personal history of non-Hodgkin lymphomas; Z90.5 Acquired absence of kidney; Z95.5 Presence of coronary angioplasty implant and graft; Z79.899 Other long term (current) drug therapy
CPT/HCPCS: 96374; 96372 ×2; 96361 ×2; 96375; 80053; 85025; 82948 ×6; 36415; G0378 ×23; G0379; J0360; J1644 ×2; J1815 ×4

== ENCOUNTER 2023-12-16 19:57 | Emergency (ER) | payer OTHER ==
[~2023-12-16] VITALS: Ht 167.6 cm; Wt 79.4 kg
[2023-12-16] MEDS: FAMOTIDINE 20MG VIAL IV ONE (20:22)
[2023-12-16] MEDS: 0.9%NACL 1000ML 1,000 ML IV ONE (20:22)
[2023-12-16] MEDS: ondanSETRON 4MG INJ IVP ONE (20:22)
[2023-12-16 20:31] LABS: BASOPHILS # (AUTO) 0.05 K/uL (0.00-0.20); BASOPHILS % (AUTO) 0.4 % (0.0-5.0); EOSINOPHILS % (AUTO) 0.7 % (0.0-8.0); HEMATOCRIT 41.2 % (42-54); IMMATURE GRANULOCYTE ABSOLUTE 0.04 K/uL (0-1); LYMPHOCYTES # (AUTO) 0.2 K/uL (1.0-4.8); LYMPHOCYTES % (AUTO) 1.2 % (21.0-51.0); MEAN CORPUSCULAR HEMOGLOBIN 29.9 pg (27.0-33.0); MEAN CORPUSCULAR HGB CONC 33.7 g/dL (32.0-36.0); MEAN CORPUSCULAR VOLUME 88.6 fL (79-99); MONOCYTES # (AUTO) 0.7 K/uL (0.1-1.0); MONOCYTES % (AUTO) 4.8 % (3.0-13.0); NEUTROPHILS # (AUTO) 12.6 K/uL (1.8-7.7); NEUTROPHILS % (AUTO) 92.6 % (40.0-77.0); PLATELET COUNT (AUTO) 351 K/uL (130-400); RED BLOOD CELL COUNT(AUTO) 4.65 MIL/uL (4.50-6.20); RED CELL DISTRIBUTION WIDTH 12.8 % (11.0-15.5); WHITE BLOOD COUNT (AUTO) 13.6 K/uL (4.8-10.8)
[2023-12-16 20:39] LABS: APPEARANCE,URINE CLEAR (CLEAR); BILIRUBIN,URINE NEGATIVE (NEGATIVE); COLOR,URINE LIGHT-YELLOW (YELLOW); GLUCOSE, URINE (UA) 50 mg/dL (NEGATIVE); KETONES,URINE NEGATIVE (NEGATIVE); LEUKOCYTE ESTERASE ,URINE NEGATIVE Leu/uL (NEGATIVE); NITRATE,URINE NEGATIVE (NEGATIVE); PROTEIN,URINE 300 mg/dL (NEGATIVE); UROBILINOGEN,URINE 0.2 mg/dL (0.2-1.0)
[2023-12-16 20:41] LABS: ADD UA MICROSCOPIC YES
[2023-12-16 20:44] LABS: CREATININE 2.7 mg/dL (0.5-1.3); POTASSIUM 4.9 mmol/L (3.5-5.1)
[2023-12-16] MEDS: acetaMINOPHEN 500 MG TABLET PO ONE (20:47)
[2023-12-16 21:17] LABS: MUCUS,URINE RARE LPF (None Seen); RBC,URINE 0-1 /HPF (0-1); SQUAMOUS EPITHELIAL CELL,UR RARE /HPF (0-2); WBC,URINE 0-1 /HPF (0-1)
[2023-12-16] MEDS ORDERED: ONDA-243 PO (21:22)
[2023-12-16] MEDS ORDERED: DICY20TA2 PO (21:22)
[2023-12-16 21:24] VITALS: TEMP 98.6
[2023-12-16 21:32] VITALS: BP 155/78; PULSE 90; RESP 18; TEMP 98.6; O2SAT 99
== END 2023-12-16 21:33 | disposition home or self-care (01) ==
LOC: EDH 19:57
DX: A08.4 Viral intestinal infection, unspecified (principal); R11.2 Nausea with vomiting, unspecified; R19.7 Diarrhea, unspecified; I12.9 Hypertensive chronic kidney disease with stage 1 through stage 4 chronic kidney disease, or unspecified chronic kidney disease; E11.22 Type 2 diabetes mellitus with diabetic chronic kidney disease; N18.30 Chronic kidney disease, stage 3 unspecified; Z79.82 Long term (current) use of aspirin; Z79.84 Long term (current) use of oral hypoglycemic drugs; Z79.899 Other long term (current) drug therapy; Z85.528 Personal history of other malignant neoplasm of kidney; Z88.5 Allergy status to narcotic agent; Z88.8 Allergy status to other drugs, medicaments and biological substances; Z90.49 Acquired absence of other specified parts of digestive tract; Z91.041 Radiographic dye allergy status; Z95.5 Presence of coronary angioplasty implant and graft
CPT/HCPCS: 99284; 96374; 96375; 80048; 85025; 82010; 81001; 36415; J3490; J7030; J2405